=== PATIENT | female | born 1990 | race Hispanic/Latino ===

== ENCOUNTER 2016-11-01 18:21 | Inpatient (IN) | payer OTHER ==
[~2016-11-01] VITALS: Ht 167.6 cm; Wt 55.3 kg
[~2016-11-01 18:21] MED LIST: CYCLOBENZAPRINE10 M1 PO; KETOROLAC TROME10 M1 PO; PERCOCET 5-3251 EACH PO
--- NOTE | 2016-11-01 18:26 | NUR ---
TRIAGE; PT TO ED C/O RT SIDED CHEST/LUNG PAIN. STATES SHE HAS OLIVARES HX OF SPONTANEOUS PNEUMOTHORAX IN JULY 2016, AND FEELS LIKE THE SAME. STATES SHE WOKE UP THIS AM AND FELT THE PAIN. DENIES ANY INJURY. RA SAT 99% AT THIS TIME.
--- NOTE | 2016-11-01 18:34 | NUR ---
MEDICATED WITH MOTRIN PER eMAR AND O2 SAT MONITORING STABLE AT 98-99%RA. NO INCREASED WORK OF BREATHING OR SOB OBSERVED.
--- NOTE | 2016-11-01 18:34 | ED DYSPNEA/ASTHMA COMPLAINT ---
History of Present Illness General Chief Complaint: Dyspnea (COPD, CHF, Other) Stated Complaint: SOB Source: patient, old records Exam Limitations: no limitations Allergies Coded Allergies: NO KNOWN ALLERGIES (08/23/15) Reconcile Medications No Known Home Medications Triage Note: TRIAGE; PT TO ED C/O RT SIDED CHEST/LUNG PAIN. STATES SHE HAS OLIVARES HX OF SPONTANEOUS PNEUMOTHORAX IN JULY 2016, AND FEELS LIKE THE SAME. STATES SHE WOKE UP THIS AM AND FELT THE PAIN. DENIES ANY INJURY. RA SAT 99% AT THIS TIME. Triage Nurses Notes Reviewed? yes Onset: Abrupt Duration: day(s): (1), constant Timing: recent history Severity: moderate Activities at Onset: none Prior Episodes/Possible Cause: PNTHX JULY 2016 : No Patient currently breastfeeds: No HPI: 25-year-old female with history of spontaneous right-sided pneumothorax 3 months ago (complicated by hemothorax requiring IR placed chest tube 07/2016) presents the ER today for evaluation complaining of sudden onset right-sided chest wall pain associated with shortness of breath that came on upon waking this morning. She states this feels similar to when she had the pneumothorax. There's been no recent trauma or injury no heavy lifting. No cough fever or chills no hemoptysis. No dizziness lightheadedness or palpitations. She denies any abdominal pain nausea or vomiting. No leg pain or swelling.no modifying factors or associated symptoms otherwise. (MATT NAGEL) Vital Signs & Intake/Output Vital Signs & Intake/Output Vital Signs Date Time Temp Pulse Resp B/P Pulse O2 O2 Flow FiO2 Ox Delivery Rate 11/01 1903 86 22 123/88 100 Room Air 11/01 1845 99 Room Air 11/01 1824 97.1 88 18 124/84 99 Room Air Past History Travel History Traveled to [place] past 21 day No Medical History Any Pertinent Medical History? see below for history Neurological: NONE EENT: NONE Cardiovascular: NONE Respiratory: PNEUMOTHORAX Gastrointestinal: NONE Hepatic: NONE Renal: NONE Musculoskeletal: NONE Psychiatric: NONE Endocrine: NONE History of MRSA: No History of VRE: No History of CDIFF: No Surgical History Surgical History: non-contributory Psychosocial History Who do you live with Significant Other Services at Home None What is your primary language Chilean Tobacco Use: Never used Family History Hx Contributory? No (MATT NAGEL) Review of Systems Review of Systems Constitutional: Reports: see HPI. All Other Systems: Reviewed and Negative Comments Review of systems: See HPI, All other systems negative. Constitutional, no chills no fever, no malaise HEENT: no sore throat no congestion Cardiovascular: chest pain , no palpitation Skin, no rashes, no change in skin Respiratory: dyspnea no cough no sputum no hemoptysis GI: No nausea no vomiting, no diarrhea, : No dysuria No hematuria, no frequency Muscle skeletal: No joint pain, no joint swelling, no back pain, no neck pain, Neurologic: No numbness no headache Psych: No stress Heme/endocrine: No bruising no bleeding Immunology: No lymphadenopathy (MATT NAGEL) Physical Exam Physical Exam General Appearance: well developed/nourished, alert, awake Respiratory: normal breath sounds, chest non-tender, no respiratory distress Comments: Well-developed well-nourished person in no acute distress HEENT: Normal EENT exam; PERRL, EOMI, HEAD is atraumatic. moist mucous membranes. Neck: Supple, normal range of motio Back: Nontender, no CVA tenderness. Full range of motion Cardiovascular: Regular rate and rhythms no murmurs rubs or gallops, normal JVP Respiratory: Chest nontender.There were no bony deformities, no asymmetry. No respiratory distress. Patient speaking in full complete sentences. Breath sounds clear to auscultation bilaterally: NO W/R/R Abdomen: Soft, nontender nondistended, Extremity: No edema, full range of motion of extremities Neuro: Alert oriented x3, motor sensory normal, There were no obvious focal neurologic abnormalities. Skin: No appreciable rash on exposed skin, skin is warm and dry. Psych: Mood and affect is normal, memory and judgment is normal. Core Measures ACS in differential dx? Yes Severe Sepsis Present: No Septic Shock Present: No All Positive = PERC Ruled Out: Positive: age < 50 years, heart rate < 100 bpm, O2 sat > 94%, no hemoptysis, no hormone use, no prior DVT or PE, no unilateral leg swellin, no surgery/trauma w/ in 4w. (MATT NAGEL) Progress Differential Diagnosis: asthma, AMI, bronchitis, costochondritis, musculoskeletal pain, pericarditis, pulmonary embolism, pneumonia, pneumothorax, unstable angina Diagnostic Imaging: Viewed by Me: Radiology Read. Discussed w/RAD: Radiology Read. Radiology Impression: PATIENT: MESSI NEGRO PRESENT AGE: 25 PATIENT ACCOUNT NO: [id number] : 91 LOCATION: [facility] ORDERING PHYSICIAN: MATT WISEMAN SERVICE DATE: 11/01/16-1830 EXAM TYPE: RAD - XRY-CHEST XRAY, PA AND LATERAL EXAMINATION: CHEST 2 VIEWS CLINICAL INFORMATION: Chest pain. History of prior right-sided pneumothorax. COMPARISON: 08/26/2016. TECHNIQUE: PA and lateral views of the chest were obtained. FINDINGS : The cardiac silhouette is not enlarged. The mediastinal and hilar contours are unremarkable. There are no pleural effusions. There is a lwdfw-xo-sxbemsgn right pneumothorax without shift of midline structures. There are no consolidations. The osseous structures are unremarkable. IMPRESSION: Vzxzy-qy-mzjunpfo right pneumothorax without shift of midline structures. DICTATED BY: GURDEEP RABAGO MD DATE/TIME DICTATED:11/01/161850 RIVET TAPPING MACHINE OPERATOR:RUDOLPH DATE/TIME TRANSCRIBED:11/01/161850 CONFIDENTIAL, DO NOT COPY WITHOUT APPROPRIATE AUTHORIZATION. <Electronically signed in Other Vendor System> SIGNED BY: GURDEEP RABAGO MD 11/01/161854 Initial ED EKG: normal intervals, normal p-waves, normal QRS complex, normal sinus rhythm (80) Prior EKG: unchanged (07/2016) (KYLIE WISEMAN,MATT) Plan of Care: Orders Procedure Date/time Status Nothing by Mouth 11/02 B Active XRY-CHEST XRAY, ONE VIEW ONLY 11/02 06 Active CBC WITHOUT DIFFERENTIAL 11/02 06 Active BASIC ELECTROLYTES PLUS BUN&CR 11/02 06 Active TYPE & SCREEN (NOT X-MATCH) 11/02 06 Active Regular Diet 11/01 D Complete TRC EVALUATION (GEN) 11/01 1934 Active Pathway - chart 11/01 1934 Active Patient Data 11/01 1934 Active Code Status 11/01 1934 Active Saline Lock 11/02 1927 Active Misc Message 11/02 1927 Active ED Holding Orders 11/02 1927 Active Admit to inpatient 11/02 1927 Active Vital Signs 11/02 1927 Active Code Status 11/02 1927 Complete Admit to inpatient 11/01 1926 Active PARTIAL THROMBOPLASTIN TIME 11/01 1914 Complete PROTHROMBIN TIME 03/19 1915 Complete HUMAN BETA HCG SCREEN 11/01 1914 Active COMPREHENSIVE METABOLIC PANEL 11/01 1914 Active CBC WITHOUT DIFFERENTIAL 11/01 1914 Complete EKG 11/01 1836 Active VTE Mechanical Prophylaxis 11/01 UNK Active Vital Signs 11/01 UNK Active Nursing RT Care 11/01 UNK Active Intake & Output 11/01 UNK Active Activity/Ambulation 11/[address] CHEST WO IV CONTRAST 11/01 UNK Active Current Medications Sig/Dorothy Start time Last Medication Dose Stop Time Status Admin Hydromorphone HCl 1 MG Q3P PRN 11/01 1944 AC (Dilaudid) Ketorolac 30 MG Q8P PRN 11/01 1944 AC Tromethamine (Toradol) Ondansetron HCl 4 MG Q6P PRN 11/01 1944 AC (Zofran) Potassium Chloride 20 MEQ .[id number] 11/01 1929 AC (KCl 20MEQ in D5W NS 1000ML) Dextrose/Sodium 1,000 ML Chloride (D5-Normal Saline) Laboratory Tests 11/01/161934: Sodium Pending, Potassium Pending, Chloride Pending, Carbon Dioxide Pending, Anion Gap Pending, BUN Pending, Creatinine Pending, BUN/Creatinine Ratio Pending , Glucose Pending, Calcium Pending, Total Bilirubin Pending, AST Pending, ALT Pending, Alkaline Phosphatase Pending, Total Protein Pending, Albumin Pending, Globulin Pending, Albumin/Globulin Ratio Pending, Total Beta HCG NEGATIVE, PT 11.9, INR 1.13, APTT 35, CBC w Diff NO MAN DIFF REQ, RBC 4.76, MCV 87.3, MCH 28.3, RDW 13.4, MPV 9.8, Gran % 66.1, Lymphocytes % 24.9, Monocytes % 6.9, Eosinophils % 1.7, Basophils % 0.4, Absolute Granulocytes 4.8, Absolute Lymphocytes 1.8, Absolute Monocytes 0.5, Absolute Eosinophils 0.1, Absolute Basophils 0, PUBS MCHC 32.4 L Chest x-ray ordered patient making Motrin 800 mg by mouth one sounds are clear in all lung martinez patient appears in no apparent distress at this time case discussed with Dr. Araujo. On repeat evaluation patient declining anything for pain when offered I discussed with her x-ray findings labs ordered, was placed to thoracic surgery. Case was discussed with Dr. MAGANA advised to admit the patient to his service for possible pleurodesis. Surgical PA mainor kapoor in dept to eval pt, advised to place pt on 100% nrb (MATT NAGEL) Comments: 11/01/2016 7:14:18 PM patient's case discussed by me with Dr. Magana. He admitted to his service. He has requested that the pneumothorax be left alone pending surgery (this is the patient's second pneumothorax). (ZOEY NAJERA,KAYLIE Marley) Departure Departure Time of Disposition: 1919 Disposition: STILL A PATIENT Condition: Stable Clinical Impression Primary Impression: Pneumothorax Referrals: SMITHA GUDINO MD (PCP/Family) Departure Forms: Customer Survey General Discharge Information Admission Note Spoke With: YOON NAJERA,KRISTEN Howell JR Documentation of Exam: Documentation of any treatments & extenuating circumstances including Concerns Regarding Discharge (functional status, medication knowledge or non-compliance, living conditions, etc.) that warrant an admission rather than observation: Trend labs pain control nothing by mouth at midnight possible pleurodesis premature discharge would BE medically harmful (MATT NAGEL) Departure Prescriptions: Current Visit Scripts No Known Home Medications PA/MANAGER PROVIDER RELATIONS Co-Sign Statement Statement: ED Attending supervision documentation- [X] I saw and evaluated the patient. I have also reviewed all the pertinent lab results and diagnostic results. I agree with the findings and the plan of care as documented in the PA's/MANAGER PROVIDER RELATIONS's documentation. [] I have reviewed the ED Record and agree with the PA's/MANAGER PROVIDER RELATIONS's documentation. [] Additions or exceptions (if any) to the PAs/MANAGER PROVIDER RELATIONS's note and plan are summarized below: [] (ZOEY NAJERA,KAYLIE Marley) Critical Care Note Critical Care Note Critical Care Time: non-applicable (MATT NAGEL)
--- NOTE | 2016-11-01 18:40 | NUR ---
PT AMBULATED TO [facility].
--- NOTE | 2016-11-01 18:55 | RADIOLOGY REPORT ---
EXAMINATION: CHEST 2 VIEWS CLINICAL INFORMATION: Chest pain. History of prior right-sided pneumothorax. COMPARISON: 08/26/2016. TECHNIQUE: PA and lateral views of the chest were obtained. FINDINGS: The cardiac silhouette is not enlarged. The mediastinal and hilar contours are unremarkable. There are no pleural effusions. There is a xdgfi-dm-cqjqihvd right pneumothorax without shift of midline structures. There are no consolidations. The osseous structures are unremarkable. IMPRESSION: Ufwwn-gb-nsvyqedo right pneumothorax without shift of midline structures.
--- NOTE | 2016-11-01 19:28 | Admission Core Measures ---
Acute Coronary Syndrome Inclusion Criteria ACS Diagnosis No Inpatient Core Measures LDL Reminder: If No, please order W/I first 24hr of stay Congestive Heart Failure Inclusion Criteria CHF Diagnosis No Cerebrovascular accident Inclusion Criteria CVA/TIA Diagnosis No Inpatient Core Measures Bedside Swallow Eval Reminder: If BSE failed, place ST order Antithrombotic Reminder: Order Antithrombotic Medication by end of day 2 Antithrombotic Reminder: Document Reason Antithrombotic Not ordered by end of day 2 AFIB/Flutter Reminder: If Present, add to problem list AFIB/Flutter Reminder: Order Anticoag Medication for pts with AFIB/Flutter Atherosclerosis Reminder: If Present, add to problem list LDL Reminder: If No, please order W/I first 24hr of stay PT Order Reminder: If No, please order Venous thromboembolism Inpatient Core Measures VTE Risk Factors: No Risk Factors No [facility] VTE prophylaxis d/t No contraindications No VTE Pharm Prophylaxis d/t No contraindications Inclusion Criteria - Per Current guidelines, there needs to be overlap - treatment for the first 5 days of Warfarin therapy. - Parenteral Anticoagulation (IV or SC) needs to be - given along with Warfarin therapy. VTE Diagnosis No VTE Type NONE VTE Confirmed by (Test) NONE Problem List As ranked by this Provider includes Assessment & Plan 1. Pneumothorax on right HOME MEDS Home Med List No Known Home Medications
--- NOTE | 2016-11-01 19:36 | NUR ---
BLOOD DRAWN AND SENT TO LAB. SST,LAV,BLUE,DENNEY
--- NOTE | 2016-11-01 19:43 | History & Physical Pre-Op ---
LIGIA PERALES 11/01/161935: General Information and HPI MD Statement: I have seen and personally examined MESSI NEGRO and documented this H&P. The patient is a 25 year old F who presented with a patient stated chief complaint of . Chest and back pain since this morning. Source of Information: patient Exam Limitations: no limitations History of Present Illness: This is a 25-year-old female known to the thoracic surgical service. Approximately 2-1/2 months ago the patient had a spontaneous pneumothorax on the right side which was treated with chest tube decompression and eventual resolution. The patient was seen she reports developing sudden onset of chest pain which radiated to her back and only slight difficulty in breathing which started earlier this morning. The patient denied any recent coughing bouts or strenuous activities. At the current time she denied any difficulty breathing but was still having chest and back discomfort. The emergency department workup revealed a moderate sized recurrent pneumothorax on the right. The patient had no other complaints. Allergies/Medications Allergies: Coded Allergies: NO KNOWN ALLERGIES (08/23/15) Home Med list No Known Home Medications Past History Medical History Neurological: NONE EENT: NONE Cardiovascular: NONE Respiratory: PNEUMOTHORAX Gastrointestinal: NONE Hepatic: NONE Renal: NONE Musculoskeletal: NONE Psychiatric: NONE Endocrine: NONE History of MRSA: No History of VRE: No History of CDIFF: No Surgical History Pertinent Surgical History: non-contributory Past Family/Social History Psychosocial History Services at Home None Smoking Status: Never Smoked ETOH Use: denies use Functional Ability ADLs Independent: dressing, eating, toileting, bathing. Ambulation: independent IADLs Independent: shopping, housework, finances, food prep, telephone, transportation , medication admin. Review of Systems Review of Systems Cardiovascular: Denies: palpitations, syncope. Respiratory: Denies: cough, wheezing. GI: Denies: constipation, changes in stool. Exam & Diagnostic Data Last 24 Hrs of Vital Signs/I&O Vital Signs Date Time Temp Pulse Resp B/P Pulse O2 O2 Flow FiO2 Ox Delivery Rate 11/01 1903 86 22 123/88 100 Room Air 11/01 1845 99 Room Air 11/01 1824 97.1 88 18 124/84 99 Room Air Laboratory Tests 11/01 1934 Chemistry Sodium Pending Potassium Pending Chloride Pending Carbon Dioxide Pending Anion Gap Pending BUN Pending Creatinine Pending BUN/Creatinine Ratio Pending Glucose Pending Calcium Pending Total Bilirubin Pending AST Pending ALT Pending Alkaline Phosphatase Pending Total Protein Pending Albumin Pending Globulin Pending Albumin/Globulin Ratio Pending Total Beta HCG Pending Coagulation PT Pending INR Pending APTT Pending Hematology CBC w Diff Pending WBC Pending RBC Pending Hgb Pending Hct Pending MCV Pending MCH Pending RDW Pending Plt Count Pending MPV Pending PUBS MCHC Pending Chest x-ray showing a moderate size right pneumothorax. Physical Exam: Gen.: Alert and in no obvious distress Skin: Warm and dry Cardiac: S1-S2 regular Chest: Nontender with equal expansion Pulmonary: Right-sided breast sounds are diminished at the apex. There was good air exchange and there was no wheezes, rales, or rhonchi. Abdomen: Soft and nontender Extremities: Bilateral lower extremities warm without calf tenderness or significant edema. Assessment/Plan Assessment/Plan: Assessment: This is a 25-year-old female with recurrent spontaneous right pneumothorax. The patient is saturating well on room air with no signs of respiratory distress. The case was discussed with Rene Magana MD. Plan: The patient will require further operative intervention as this is a recurrence The patient be kept nothing by mouth past midnight with IV hydration PRN pain medication, antiemetics, antipyretics Total respiratory care with every 3 hour pulse oximetry The patient will be on 100% Oxygen Via a Nonrebreather GI and DVT prophylaxis Repeat chest x-ray in the morning As Ranked By This Provider Problem List: 1. Pneumothorax on right RENE MAGANA MD 11/03/16 0947: Attending MD Review Statement Attending Statement Attending MD Statement: examined this patient, discuss w/resident/PA/ARCHITECTURE PROFESSOR, agreed w/resident/PA/ARCHITECTURE PROFESSOR Attending Assessment/Plan: She had a complicated experience previously with her first pneumothorax. She had a significant hemothorax related to 8 catheter placement. Given her stability the plan will be for admission and observation overnight. We will take her to the operating room tomorrow for a thoracoscopic bleb resection and pleurodesis. The risks and benefits and rationale behind the procedure been explained to the patient and she understands and agrees.
[2016-11-01 19:59] LABS: ABSOLUTE BASOPHIL COUNT 0 /CUMM (0.0-0.2); ABSOLUTE EOSINOPHIL COUNT 0.1 /CUMM (0.0-0.7); ABSOLUTE GRANULOCYTE CT 4.8 /CUMM (1.4-6.5); ABSOLUTE LYMPH COUNT 1.8 /CUMM (1.2-3.4); ABSOLUTE MONOCYTE COUNT 0.5 /CUMM (0.10-0.60); BASOPHIL % 0.4 % (0.0-2.0); EOSINOPHIL % 1.7 % (0-5); GRANULOCYTE % 66.1 % (42.2-75.2); HEMATOCRIT 41.5 % (37-47); MEAN CORPUSCULAR HGB 28.3 PG (27.0-31.0); MEAN CORPUSCULAR HGB CONC 32.4 G/DL (33.0-37.0); MEAN CORPUSCULAR VOLUME 87.3 FL (81.0-99.0); MEAN PLATELET VOLUME 9.8 FL (7.4-10.4); PLATELET COUNT 194 /CUMM (130-400); RBC DISTRIBUTION WIDTH 13.4 % (11.5-14.5); RED BLOOD CELL CT 4.76 /CUMM (4.20-5.40); WHITE BLOOD CELL COUNT 7.3 /CUMM (4.8-10.8)
--- NOTE | 2016-11-01 20:01 | NUR ---
PT PLACED ON HIGH FLOW O2 VIA NRB PER SURGICAL PA. PT NOTED TO CONTINUE TO BE IN NO RESPIRATORY DISTRESS AND IMPROVED PAIN AFTER MOTRIN ADMINISTRATION. O2 SAT 100% ON ROOM AND AND NRB MASK. AWARE OF PLAN FOR ADMISSION AND NEED FOR IV. PROVIDED HOSPITAL SCRUB PANTS AND SOCKS TO CHANGE INTO
[2016-11-01 20:03] LABS: PT 11.9 SEC (9.4-12.5); PTT 35 SEC (25-37)
--- NOTE | 2016-11-01 20:45 | NUR ---
[facility] ASSIGNMENT #[id number]
--- NOTE | 2016-11-01 20:50 | NUR ---
PLAN FOR NPO AFTER MIDNIGHT FOR ? OR IN THE AM
--- NOTE | 2016-11-01 21:01 | CT SCAN REPORT ---
EXAMINATION: CT CHEST WITHOUT CONTRAST CLINICAL INFORMATION: Right pneumothorax. Follow-up abnormal exam. COMPARISON: Same day chest radiographs. TECHNIQUE: Contiguous axial thin section helical images of the chest were performed without contrast. The data set was reformatted in the coronal and sagittal planes and reviewed on an independent workstation. DLP: 164 mGy-cm. FINDINGS: The heart is of normal size. There is no pericardial effusion. There is neither mediastinal, hilar nor axillary lymphadenopathy. There are no chest wall masses. Review of lung windows demonstrates a moderate right pneumothorax with mass effect upon the right lung without shift of midline structures. Within the right middle lobe on image 190/432, there is a 4 mm nodule. The left lung is clear. Images of the upper abdomen demonstrate that the liver is of normal size and attenuation without focal lesions. Normal adrenal glands are identified. Bone windows: Neither sclerotic nor lytic bone lesions are identified. IMPRESSION: Moderate right pneumothorax without significant shift of midline structures. 4 mm right middle lobe nodule. Various management parameters for solitary pulmonary nodules are in the literature. According to the Fleischner Society, recommendations for pulmonary nodules are as follows: Nodule size < or = to 4 mm in LOW RISK PATIENTS: No follow up needed. Nodule size < or = to 4 mm in HIGH RISK PATIENTS: Follow up CT at 12 months; if unchanged, no further follow up. Nodule size > 4-6 mm in LOW RISK PATIENTS: Follow up CT at 12 months; if unchanged, no further follow up. Nodule size > 4-6 mm in HIGH RISK PATIENTS: Initial follow up CT at 6-12 months, then at 18-24 months if no change. Nodule size > 6-8 mm in LOW RISK PATIENTS: Initial follow up CT at 6-12 months, then at 18-24 months if no change. Nodule size > 6-8 mm in HIGH RISK PATIENTS: Initial follow up CT at 3-6 months, then 9-12 months and 24 months if no change. Nodule size > 8 mm in LOW RISK PATIENTS: Follow up CT at around 3, 9, and 24 months, dynamic contrast-enhanced CT, PET, and/or biopsy. Nodule size > 8 mm in HIGH RISK PATIENTS: Same as for low-risk patients.
--- NOTE | 2016-11-01 21:01 | NUR ---
REPORT GIVEN TO RECEIVING RN AND LEFT MESSAGE WITH DISTRIBUTION
[2016-11-01 21:47] VITALS: BP 104/78
--- NOTE | 2016-11-01 21:53 | NUR ---
PT ARRIVED AT THIS TIME- A/O X 3, ON 100% NRB MASK AT THIS TIME, 100% O2 SAT, SPOKE WITH LIGIA SURGICAL PA AT THIS TIME OK TO PLACE PT ON 10L NC WHEN EATING. OK TO EAT AND DRINK UP UNTIL MIDNIGHT THEN NPO FOR PLANS OF SURGERY. PT DENIES SOB AT THIS TIME, STATES PAIN 6-7/10 TO RIGHT CHEST/BACK AREA AND "FULLNESS" FEELING WITH DEEP BREATHING. SKIN INTACT. ALPS IN PLACE. INDEP IN ROOM. VSS. ORIENTED TO ROOM AND USE OF CALL GREER. BOX LUNCH ORDERED. EDUCATED PT ON PAIN MEDS AVAILABLE- REFUSING PAIN MEDS AT THIS TIME STATED SHE WILL CALL IF SHE NEEDS PAIN MEDS. WILL CONTINUE TO MONITOR
[2016-11-02 06:49] VITALS: BP 104/80
[2016-11-02 08:14] LABS: ABSOLUTE BASOPHIL COUNT 0 /CUMM (0.0-0.2); ABSOLUTE EOSINOPHIL COUNT 0.1 /CUMM (0.0-0.7); ABSOLUTE GRANULOCYTE CT 1.5 /CUMM (1.4-6.5); ABSOLUTE LYMPH COUNT 1.8 /CUMM (1.2-3.4); ABSOLUTE MONOCYTE COUNT 0.4 /CUMM (0.10-0.60); BASOPHIL % 0.5 % (0.0-2.0); GRANULOCYTE % 38.4 % (42.2-75.2); HEMATOCRIT 37.1 % (37-47); MEAN CORPUSCULAR HGB 28.4 PG (27.0-31.0); MEAN CORPUSCULAR HGB CONC 32.5 G/DL (33.0-37.0); MEAN CORPUSCULAR VOLUME 87.2 FL (81.0-99.0); MEAN PLATELET VOLUME 10.1 FL (7.4-10.4); PLATELET COUNT 146 /CUMM (130-400); RBC DISTRIBUTION WIDTH 13.7 % (11.5-14.5); RED BLOOD CELL CT 4.26 /CUMM (4.20-5.40); WHITE BLOOD CELL COUNT 3.8 /CUMM (4.8-10.8)
--- NOTE | 2016-11-02 10:24 | NUR ---
PATIENT TO OR AT 0925, PRE OP CHECKLIST AND SCRUB COMPLETED, PATIENT WILL BE GOING TO [facility] AFTER SURGERY. BELONGINGS SENT TO ROOM 113, CELL PHONE IN RIGHT POCKET OF JACKET. [facility] AWARE TO CALL FOR REPORT WHEN READY.
--- NOTE | 2016-11-02 11:21 | RADIOLOGY REPORT ---
EXAMINATION:\H\ \N\XR CHEST CLINICAL INFORMATION: Follow up study. History of right-sided pneumothorax. COMPARISON: 11/01/2016 TECHNIQUE: PA view of the chest was obtained. FINDINGS: The cardiomediastinal silhouette is normal. There is a small to moderate right-sided pneumothorax, this is similar to slightly decreased in size compared with the prior exam. No midline shift. No focal consolidation or pleural effusions are identified. IMPRESSION: Similar to slightly decreased small to moderate right-sided pneumothorax. No mediastinal shift.
--- NOTE | 2016-11-02 12:39 | RADIOLOGY REPORT ---
EXAMINATION: XR PORTABLE CHEST CLINICAL INFORMATION: Status-post right thoracoscopy, pleurodesis and thoracostomy tube placement. COMPARISON: Prior chest radiographs, most recently earlier in the same day. TECHNIQUE: Portable AP view of the chest was obtained. FINDINGS: The heart, great vessels, pulmonary vasculature and mediastinum are stable. There is interim placement of a right thoracostomy tube, with tip positioned at the medial right apex. There are right apical surgical chain cara. No focal infiltrate, effusion or pneumothorax is seen. There is no mediastinal shift. There is no acute osseous abnormality. IMPRESSION: Right lung postoperative changes are seen, including thoracostomy tube placement. There is no pneumothorax. The lungs appear clear.
--- NOTE | 2016-11-02 13:51 | PN- Thoracic Surgery ---
Subjective Subjective: Post op check Awake, alert in the PACU Pain is tolerable at this time, no specific complaints Denies nausea Objective Vital Signs and I&Os Vital Signs Date Time Temp Pulse Resp B/P Pulse O2 O2 Flow FiO2 Ox Delivery Rate 11/02 0844 Non 100% ReBreather 11/02 0843 99 Non 100% ReBreather 11/02 0800 100 Non 100% ReBreather 11/02 0700 100 Non 100% ReBreather 11/02 0649 97.6 67 19 104/80 100 Non 100% ReBreather 11/02 0425 100 Non 100% ReBreather 11/02 0400 100 Non 100% ReBreather 11/02 0104 100 Non 100% ReBreather 11/02 0104 100 Non 100% ReBreather 11/02 0000 100 Non 100% ReBreather 11/01 2200 100 Non 100% ReBreather 11/01 2147 98.8 78 18 104/78 100 Non 100% ReBreather 11/01 2134 Non 100% ReBreather 11/01 2057 98.0 76 20 124/82 100 Room Air 11/01 1903 86 22 123/88 100 Room Air 11/01 1845 99 Room Air 11/01 1824 97.1 88 18 124/84 99 Room Air Intake & Output 11/02 1600 11/02 0800 11/02 0000 11/01 1600 11/01 0800 11/01 0000 Intake Total 600 150 Output Total Balance 600 150 Intake, IV 600 Intake, Oral 150 Patient 122 lb Weight Physical Exam: 113/72 HR 86 sat 100% on 3LNC RR [address]: 50cc serosang drainage since surgery - no air leak DEMOLITION EXPERT dilaudid General: alert and oriented times three Chest: clear anteriorly, no rales/rhonchi/wheezes, RRR Abd: soft, good bs Ext: warm, no edema Wound: dressed, dry Assessment/Plan Assessment/Plan 25 yo female with recurrent R PTX now s/p R apical blebectomy, pleurodesis Chest tube to LCWS DEMOLITION EXPERT-dilaudid for pain management IVF - dc when tolerating PO Regular diet fu cxr in am Core Measures/Miscellaneous Venous Thromboembolism VTE Risk Factors: Surgery VTE Contraindications: No Contraindications VTE Diagnosis: No VTE Type: NONE VTE Confirmed by (Test): NONE Beta Susy Is Beta Susy a Home Med? No Antibiotics Is Patient on Antibiotics? Yes (post op 24 hours)
--- NOTE | 2016-11-02 14:21 | Cons- CRCU ---
General Information and HPI Consulting Request Date of Consult: 11/02/16 History of Present Illness: This is a 25-year-old female with history of spontaneous pneumothorax on the right side which was treated with chest tube decompression and eventual resolution 2 and half months ago. Yesterday she presented with sudden onset of chest pain which radiated to her back and difficulty in breathing. The patient denied any recent coughing bouts or strenuous activities. The emergency department workup revealed a moderate sized recurrent pneumothorax on the right. The patient had no other complaints. Since this was a recurrence a decision made to proceed with operative intervention, she underwent right apical blebectomy and pleurodesis. Admitted to ICU for close monitoring after the surgical procedure. Allergies/Medications Allergies: Coded Allergies: NO KNOWN ALLERGIES (08/23/15) Home Med List: Oxycodone HCl/Acetaminophen (Percocet 5-325 MG Tablet) 5 MG-325 MG TABLET 1-2 TAB PO Q4-6 PRN PRN pain control Current Medications: Current Medications Sig/Dorothy Start time Last Medication Dose Route Stop Time Status Admin Acetaminophen 1,000 MG Q6P PRN 11/02 1345 AC IV Cefazolin Sodium 2 GM Q8H 11/02 1830 AC N/A 1 UNIT IV 11/03 0259 Docusate Sodium 100 MG BID 11/02 2200 AC PO Heparin Sodium 5,000 UNIT Q8 11/02 1400 AC (Porcine) SC Hydromorphone HCl 50 MG Q24H PRN 11/02 1215 AC Sodium Chloride 45 ML IV Hydromorphone HCl 1 MG Q3P PRN 11/01 194 DC IV Ibuprofen 800 MG ONCE ONE 11/01 1845 DC 11/01 PO 11/01 1846 1834 Ibuprofen 0 .STK-MED ONE 11/01 183 DC PO Ketorolac 30 MG Q8P PRN 11/01 1945 DC Tromethamine IV Ondansetron HCl 4 MG Q6P PRN 11/02 1345 AC IV Ondansetron HCl 4 MG Q6P PRN 11/01 194 DC IV Patient Medication 1 ED ONE ONE 11/02 1345 DC Teaching ED 11/02 1346 Potassium Chloride 20 MEQ .[id number] 11/02 2210 AC Dextrose/Sodium 1,000 ML IV Chloride Potassium Chloride 20 MEQ .[id number] 11/01 1930 AC 11/01 Dextrose/Sodium 1,000 ML IV 11/02 Chloride Review of Systems Review of Systems Constitutional: Denies: chills, fever. EENTM: Reports: no symptoms. Cardiovascular: Reports: chest pain. Denies: palpitations. Respiratory: Reports: short of breath. Denies: cough, sputum production. GI: Denies: abdominal pain, constipation, diarrhea, nausea, vomiting. Genitourinary: Reports: no symptoms. Musculoskeletal: Reports: no symptoms. Skin: Reports: no symptoms. Past History Travel History Traveled to [place] past 21 day No Medical History Blood Transfusion Hx: No Neurological: NONE EENT: NONE Cardiovascular: NONE Respiratory: PNEUMOTHORAX Gastrointestinal: NONE Hepatic: NONE Renal: NONE Musculoskeletal: NONE Psychiatric: NONE Endocrine: NONE Surgical History Surgical History: non-contributory Family History Relations & Conditions If Any: Relation not specified for: *No pertinent family history Psychosocial History Where Do You Live? Home Services at Home: None Primary Language: Urugu[place] Smoking Status: Never Smoked ETOH Use: denies use Illicit Drug Use: denies illicit drug use Functional Ability ADLs Independent: dressing, eating, toileting, bathing. Ambulation: independent IADLs Independent: shopping, housework, finances, food prep, telephone, transportation , medication admin. Exam & Diagnostic Data Last 24 Hrs of Vital Signs/I&O Vital Signs Date Time Temp Pulse Resp B/P Pulse O2 O2 Flow FiO2 Ox Delivery Rate 11/02 0844 Non 100% ReBreather 11/02 0843 99 Non 100% ReBreather 11/02 0800 100 Non 100% ReBreather 11/02 0700 100 Non 100% ReBreather 11/02 0649 97.6 67 19 104/80 100 Non 100% ReBreather 11/02 0425 100 Non 100% ReBreather 11/02 0400 100 Non 100% ReBreather 11/02 0104 100 Non 100% ReBreather 11/02 0104 100 Non 100% ReBreather 11/02 0000 100 Non 100% ReBreather 11/010 100 Non 100% ReBreather 11/01 2146 98.8 78 18 104/78 100 Non 100% ReBreather 11/01 2133 Non 100% ReBreather 11/01 2056 98.0 76 20 124/82 100 Room Air 11/01 1903 86 22 123/88 100 Room Air 11/01 1845 99 Room Air 11/01 1824 97.1 88 18 124/84 99 Room Air Intake & Output 11/02 1600 11/02 0800 11/02 0000 Intake Total 600 150 Output Total Balance 600 150 Intake, IV 600 Intake, Oral 150 Patient 55.338 kg Weight Physical Exam General Appearance: well developed/nourished, mild distress Respiratory: decreased breath sounds right sided lower and middle lung zones Cardiovascular: regular rate/rhythm Gastrointestinal: normal bowel sounds, soft, non-tender Extremities: normal inspection, no edema Last 48 Hrs of Labs/[place]: Laboratory Tests 11/02/1615: Anion Gap 4 L, Estimated GFR > 60, BUN/Creatinine Ratio 15.0, CBC w Diff NO MAN DIFF REQ, RBC 4.26, MCV 87.2, MCH 28.4, RDW 13.7, MPV 10.1, Gran % 38.4 L, Lymphocytes % 48.3, Monocytes % 9.8 H, Eosinophils % 3.0, Basophils % 0.5, Absolute Granulocytes 1.5, Absolute Lymphocytes 1.8, Absolute Monocytes 0.4, Absolute Eosinophils 0.1, Absolute Basophils 0, PUBS MCHC 32.5 L 11/01/161934: Anion Gap 6, Estimated GFR > 60, BUN/Creatinine Ratio 12.9, Glucose 77, Calcium 9.4, Total Bilirubin 0.6, AST 22, ALT 36, Alkaline Phosphatase 49, Total Protein 7.1, Albumin 4.0, Globulin 3.1, Albumin/Globulin Ratio 1.3, Total Beta HCG NEGATIVE, PT 11.9, INR 1.13, APTT 35, CBC w Diff NO MAN DIFF REQ, RBC 4.76, MCV 87.3, MCH 28.3, RDW 13.4, MPV 9.8, Gran % 66.1, Lymphocytes % 24.9, Monocytes % 6.9, Eosinophils % 1.7, Basophils % 0.4, Absolute Granulocytes 4.8, Absolute Lymphocytes 1.8, Absolute Monocytes 0.5, Absolute Eosinophils 0.1, Absolute Basophils 0, PUBS MCHC 32.4 L Assessment/Plan Impression/Plan: This is a 25-year-old female with history of spontaneous pneumothorax on the right side which was treated with chest tube decompression and eventual resolution 2 and half months ago. Yesterday she presented with sudden onset of chest pain which radiated to her back and difficulty in breathing. The patient denied any recent coughing bouts or strenuous activities. The emergency department workup revealed a moderate sized recurrent pneumothorax on the right. The patient had no other complaints. Since this was a recurrence a decision made to proceed with operative intervention, she underwent right apical blebectomy and pleurodesis. Admitted to ICU for close monitoring after the surgical procedure. Patient will be admitted to ICU for close monitoring: - Oxygen supplementation as needed to keep saturation above 90%. - Daily chest x-rays to assess for thoracostomy tube placement, any pneumothorax , hemothorax. - We'll monitor daily labs to monitor H&H, white count, monitor fever - Will advance diet as tolerated. - Pain control with Dilaudid - We'll advance diet as tolerated - DVT prophylaxis - Patient is full code Consult Acknowledgment - Thank you for your consult request.
[2016-11-02 14:30] VITALS: BP 108/84
--- NOTE | 2016-11-02 15:00 | NUR ---
Patient arrived from PACU at approx 1415 accompanied by RN. Pt is alert and oriented x's 3, able to follow commands and responds appropriately. NSR-ST on tele monitor, HR= 80-90's. SBP: 110's and pt denies chest pain. Currently on 3L nc, lungs diminished to the right and clear on the left. O2 sats 98-100%. A right sided chest tube is in place and to low wall suction. Bloody drainage is noted and chest tube was marked upon arrival to floor. Dressing to site is clean, dry and intact. No leak is noted. Abdomen is soft and non tender with + bowel sounds. A lunch tray was ordered for her- No areas of pressure injury are currently noted. She was ambulated to the [facility] with minimal assistance. Pt c/o pain 4/10 to surgical site and she was re-educated on the use of her [employer] pump. D5NS with 20 meq kcl infusing at 75mls/hr. IV abx per order. Family at the bedside and updated on POC. Vitals stable. Will continue to closely monitor patient.
[2016-11-02 16:30] VITALS: BP 112/86
[2016-11-02 18:30] VITALS: BP 119/75
[2016-11-02 20:13] VITALS: BP 117/71
--- NOTE | 2016-11-02 21:22 | NUR ---
PT AVSS.A/OX3.FOLLOW COMMANDS.C'O GEN DISCOMFORT AND DILAUDID THERMAL CUTTER HAND CONT WITH GOOD EFFECT.NO C'O CP OR RESP DISTRESS. RIGHT CT PATENT WITH NO AIRLEAK AND SM SANGUINOUS OUTPUT NOTED, REMAIN ON SXN.HOB ELEVATED. ON 2L O2 WITH SATS >100%.NO C'O N/V AT THIS TIME.PLAN OF CARE REVIEWED.
[2016-11-03] VITALS (11 sets, daily range): BP systolic 102–122; BP diastolic 60–76
--- NOTE | 2016-11-03 05:55 | PN- Thoracic Surgery ---
Subjective Subjective: pod#1 c/o rigth sided chest pain at chest tube site with inspiration deneis substernal chest pain or left sided pain with inspirations no n+v with diet Objective Vital Signs and I&Os Vital Signs Date Time Temp Pulse Resp B/P Pulse O2 O2 Flow FiO2 Ox Delivery Rate 11/03 0400 98.0 94 22 114/60 11/03 0400 100 Nasal 2.0L Cannula 11/03 0348 100 Nasal 2.0L Cannula 11/03 0200 98.2 94 22 122/76 11/03 0000 98.2 96 12 108/60 11/03 0000 100 Nasal 2.0L Cannula 11/03 0000 98.2 96 12 108/60 100 Nasal 2.0L Cannula 11/02 2017 94 Nasal 3.0L Cannula 11/02 2012 98.0 98 20 117/71 11/02 1830 90 18 119/75 11/02 1821 99 Nasal 2.0L Cannula 11/02 1630 97.9 108 20 112/86 11/02 1600 99 Nasal 2.0L Cannula 11/02 1448 Nasal 2.0L Cannula 11/02 1430 97.8 106 16 108/84 11/02 1430 100 Nasal 2.0L Cannula 11/02 1430 97.8 106 16 108/84 99 Nasal 2.0L Cannula 11/02 0844 Non 100% ReBreather 11/02 0843 99 Non 100% ReBreather 11/02 0800 100 Non 100% ReBreather 11/02 0700 100 Non 100% ReBreather 11/02 0649 97.6 67 19 104/80 100 Non 100% ReBreather Intake & Output 11/03 0800 11/03 0000 11/02 1600 11/02 0800 11/02 0000 11/01 1600 Intake Total 795 195 600 150 Output Total 835 420 Balance -40 -225 600 150 Intake, IV 675 75 600 Intake, Oral 120 120 150 Output, Chest 35 20 Tube Drainage Output, Urine 800 400 Patient 122 lb Weight Physical Exam: cv: rrr lungs: good air movement with ins/exp no rhales/rhonchi abd: soft, +bs ext: warm distal cms intact chest drsg dry intact chest tube: +air leak Assessment/Plan Assessment/Plan thoracic stable plan f/u am cxr chest tube to lws plan per dr jackson Core Measures/Miscellaneous Venous Thromboembolism VTE Risk Factors: Surgery VTE Contraindications: No Contraindications VTE Diagnosis: No VTE Type: NONE VTE Confirmed by (Test): NONE Beta Susy Is Beta Susy a Home Med? No Antibiotics Is Patient on Antibiotics? Yes (post op 24 hours)
[2016-11-03 06:35] LABS: ABSOLUTE BASOPHIL COUNT 0 /CUMM (0.0-0.2); ABSOLUTE EOSINOPHIL COUNT 0 /CUMM (0.0-0.7); ABSOLUTE GRANULOCYTE CT 6.6 /CUMM (1.4-6.5); ABSOLUTE LYMPH COUNT 1.1 /CUMM (1.2-3.4); ABSOLUTE MONOCYTE COUNT 0.6 /CUMM (0.10-0.60); BASOPHIL % 0.1 % (0.0-2.0); EOSINOPHIL % 0.3 % (0-5); HEMATOCRIT 36.1 % (37-47); MEAN CORPUSCULAR HGB 28.4 PG (27.0-31.0); MEAN CORPUSCULAR HGB CONC 32.7 G/DL (33.0-37.0); MEAN PLATELET VOLUME 9.7 FL (7.4-10.4); PLATELET COUNT 147 /CUMM (130-400); RBC DISTRIBUTION WIDTH 13.5 % (11.5-14.5); RED BLOOD CELL CT 4.15 /CUMM (4.20-5.40)
[2016-11-03 06:39] LABS: GRANULOCYTE % 79.5 % (42.2-75.2); WHITE BLOOD CELL COUNT 8.2 /CUMM (4.8-10.8)
--- NOTE | 2016-11-03 07:26 | PN- Resident CRCU ---
Subjective HPI/CRCU Issues: Patient seen and examined this morning. She was lying comfortably in bed in no acute distress. She states that she is feeling better as compared to yesterday, but her breathing so is painful, rating the pain 6 on 10 upon deep inspiration. She did have one episode of vomiting yesterday after she ate but ever since no repeat episodes, no nausea, no abdominal pain, has been afebrile, the right is within normal limits. Chest tube to LCWS. Total drainage in the last 24 hours 75ml. 24 Hour Events: Acute overnight events acute overnight events Objective Vital Signs & I&O Last 8 Hrs of Vitals and I&O: Laboratory Tests 11/03/16 0535: Anion Gap 13, Estimated GFR > 60, BUN/Creatinine Ratio 10.0, CBC w Diff NO MAN DIFF REQ, RBC 4.15 L, MCV 87.0, MCH 28.4, RDW 13.5, MPV 9.7, Gran % 79.5 H, Lymphocytes % 12.9 L, Monocytes % 7.2, Eosinophils % 0.3, Basophils % 0.1, Absolute Granulocytes 6.6 H, Absolute Lymphocytes 1.1 L, Absolute Monocytes 0.6, Absolute Eosinophils 0, Absolute Basophils 0, PUBS MCHC 32.7 L Microbiology 11/02 1430 UPPER RESP: Surveillance Culture - RECD 11/02 1351 GI: Surveillance Culture - COLB Vital Signs Date Time Temp Pulse Resp B/P Pulse O2 O2 Flow FiO2 Ox Delivery Rate 11/03 0600 98.0 88 20 112/73 11/03 0400 98.0 94 22 114/60 11/03 0400 100 Nasal 2.0L Cannula 11/03 0348 100 Nasal 2.0L Cannula 11/03 0200 98.2 94 22 122/76 11/03 0000 98.2 96 12 108/60 11/03 0000 100 Nasal 2.0L Cannula 11/03 0000 98.2 96 12 108/60 100 Nasal 2.0L Cannula 11/02 2018 94 Nasal 3.0L Cannula 11/02 2012 98.0 98 20 117/71 11/02 1830 90 18 119/75 11/02 1821 99 Nasal 2.0L Cannula 11/02 1630 97.9 108 20 112/86 11/02 1600 99 Nasal 2.0L Cannula 11/02 1448 Nasal 2.0L Cannula 11/02 1430 97.8 106 16 108/84 11/02 1430 100 Nasal 2.0L Cannula 11/02 1430 97.8 106 16 108/84 99 Nasal 2.0L Cannula 11/02 0844 Non 100% ReBreather 11/02 0843 99 Non 100% ReBreather Intake & Output 11/03 1600 11/03 0800 11/03 0000 Intake Total 734 795 Output Total 820 835 Balance -86 -40 Intake, IV 634 675 Intake, Oral 100 120 Output, Chest 20 35 Tube Drainage Output, Urine 800 800 Exam General Appearance: well developed/nourished Respiratory: decreased right sided breath sounds Cardiovascular: regular rate/rhythm Gastrointestinal: normal bowel sounds, soft, non-tender Extremities: normal inspection, no edema Current Medications: Current Medications Sig/Dorothy Start time Last Medication Dose Route Stop Time Status Admin Acetaminophen 1,000 MG Q6P PRN 11/02 1345 AC 11/03 IV 0735 Albuterol Sulfate 3 ML Q4 11/02 1800 AC 11/03 INH 0328 Cefazolin Sodium 2 GM Q8H 11/02 1830 DC 11/03 N/A 1 UNIT IV 11/03 0259 0312 Dexamethasone 4 MG .STK-MED ONE 11/02 0902 DC IM 11/02 0903 Dextrose/Sodium 1,000 ML Q13H 11/02 1745 AC 11/03 Chloride IV 0529 Docusate Sodium 100 MG BID 11/02 2200 AC 11/02 PO 2133 Fentanyl Citrate 250 MCG .STK-MED ONE 11/02 0901 DC IM 11/02 0902 Heparin Sodium 5,000 UNIT Q8 11/02 1400 AC 11/03 (Porcine) SC 0529 Hydromorphone HCl 50 MG Q24H PRN 11/02 1215 AC Sodium Chloride 45 ML IV Hydromorphone HCl 2 MG .STK-MED ONE 11/02 1151 DC IM 11/02 1152 Hydromorphone HCl 2 MG .STK-MED ONE 11/02 0901 DC IM 11/02 0902 Hydromorphone HCl 1 MG Q3P PRN 11/01 194 DC IV Ketorolac 30 MG ONCE ONE 11/02 1545 CAN Tromethamine IV 11/02 1546 Ketorolac 30 MG Q8P PRN 11/01 194 DC Tromethamine IV Metoclopramide HCl 10 MG ONCE ONE 11/03 1999 DC IV 11/02 2000 Midazolam HCl 2 MG .STK-MED ONE 11/02 09 DC IM 11/02 0902 Ondansetron HCl 4 MG Q6P PRN 11/02 1345 AC 11/02 IV 1813 Ondansetron HCl 4 MG Q6P PRN 11/01 1945 DC IV Patient Medication 1 ED ONE ONE 11/02 1345 DC Teaching ED 11/02 1346 Potassium Chloride 20 MEQ .[id number] 11/02 2210 CAN Dextrose/Sodium 1,000 ML IV Chloride Potassium Chloride 20 MEQ .[id number] 11/01 1930 DC 11/02 Dextrose/Sodium 1,000 ML IV 11/02 2209 1723 Chloride Antibiotics Antibiotic: cefazolin Day #: 2 IV/PO? IV CXR Findings: Right lung postoperative changes are seen, including thoracostomy tube placement. There is no pneumothorax. The lungs appear clear. Impression/Plan Impression/Problem List Impression: This is a 25-year-old female with history of spontaneous pneumothorax on the right side which was treated with chest tube decompression and eventual resolution 2 and half months ago. Yesterday she presented with sudden onset of chest pain which radiated to her back and difficulty in breathing. The patient denied any recent coughing bouts or strenuous activities. The emergency department workup revealed a moderate sized recurrent pneumothorax on the right. The patient had no other complaints. Since this was a recurrence a decision made to proceed with operative intervention, she underwent right apical blebectomy and pleurodesis. Admitted to ICU for close monitoring after the surgical procedure. Patient will be admitted to ICU for close monitoring: - Oxygen supplementation as needed to keep saturation above 90%. - Daily chest x-rays to assess for thoracostomy tube placement, any pneumothorax , hemothorax. Continue TRC and incentive spirometry. - We'll monitor daily labs to monitor H&H, white count, monitor fever - Pain control with Dilaudid, 4 she states that the pain has been adequately controlled. -Patient tolerating regular diet well. - DVT prophylaxis - Patient is full code Problem List: 1. Pneumothorax 2. Status post chest tube placement Pain Ratin Pain Location: Chest left-sided Tomorrow's Labs & Rationales: CBC for H and H monitoring status post surgery BEP for lytes monitoring Plan DVT/Prophylaxis: pharmacological
--- NOTE | 2016-11-03 09:16 | RADIOLOGY REPORT ---
EXAMINATION: XR PORTABLE CHEST CLINICAL INFORMATION: 25-year-old female with history of spontaneous right-sided hydropneumothorax. Status post right apical blebectomy. For follow-up. COMPARISON: Chest radiograph done on 07/22/2016, CT of the chest done on 11/01/2016 and most recent prior chest radiograph done on 11/02/2016. TECHNIQUE: Portable AP view of the chest was obtained. FINDINGS: Interval placement of a right-sided chest tube noted, the tip of the chest tube is seen projecting at the level of the first posterior intercostal space. There is low lung volume present (right greater than left). Postsurgical changes are noted in the form of radiopaque sutures overlying the right lung apex consistent with recent surgery. No definite evidence of any pneumothorax noted. Some air is noted within the overlying soft tissues within the muscle consistent with recent surgery. The cardiomediastinal silhouette is within normal limits. The visualized upper abdomen is unremarkable. IMPRESSION: 1. Postsurgical changes are present at right lung apex without any definite pneumothorax. 2. The tip of the chest tube is seen projecting at the right posterior first intercostal space. 3. Bilateral low lung volume.
--- NOTE | 2016-11-03 09:52 | Operative Report ---
Operative/Inv Procedure Report Surgery Date: 11/02/16 Name of Procedure: Right thoracoscopy. Apical bleb resection. 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 The patient was placed in the left lateral decubitus position and her right chest was prepped with chlorhexidine scrub and draped in a sterile fashion. An access thoracostomy site was made in the midaxillary line and the thoracoscope was introduced. There was a single apical adhesion which was taken down with electrocautery. Otherwise there was complete freedom of the upper and middle lobes with only adhesions seen at the right base to the diaphragm. Mobilization of the lung allowed identification of a single apical bleb which was photographed and left in the chart. His portion of the lung was then resected with the Endo AVA stapler. A mechanical pleurodesis was done from the apex to the diaphragm with a variety of tools including a scratch pad to allow for an abrasion of the pleural surface. The chest was irrigated with saline and found to be hemostatic. A single straight 28 [place] chest tube was placed through the anterior working site and positioned at the apex. The lung was then reinsufflated under direct vision. Of note because of the patient's thin body habitus there was fairly direct communication from the skin level to the pleural surface so all the wounds were carefully closed in a pneumostatic way with deep Vicryl suture and running Vicryl subcuticular suture. The chest tube site was cinched around the tube to prevent further air leak. The patient tolerated procedure well and was brought to the recovery room awake and extubated in stable condition.
[2016-11-04] VITALS: BP 113/81; BP 114/72
[2016-11-04 03:02] LABS: ABSOLUTE BASOPHIL COUNT 0 /CUMM (0.0-0.2); ABSOLUTE EOSINOPHIL COUNT 0.1 /CUMM (0.0-0.7); ABSOLUTE GRANULOCYTE CT 2.5 /CUMM (1.4-6.5); ABSOLUTE LYMPH COUNT 1.8 /CUMM (1.2-3.4); ABSOLUTE MONOCYTE COUNT 0.4 /CUMM (0.10-0.60); BASOPHIL % 0.5 % (0.0-2.0); EOSINOPHIL % 1.6 % (0-5); GRANULOCYTE % 52.4 % (42.2-75.2); HEMATOCRIT 36.3 % (37-47); MEAN CORPUSCULAR HGB 28.6 PG (27.0-31.0); MEAN CORPUSCULAR VOLUME 86.7 FL (81.0-99.0); PLATELET COUNT 145 /CUMM (130-400); RBC DISTRIBUTION WIDTH 13.6 % (11.5-14.5); RED BLOOD CELL CT 4.18 /CUMM (4.20-5.40); WHITE BLOOD CELL COUNT 4.8 /CUMM (4.8-10.8)
[2016-11-04 04:00] VITALS: BP 109/66
--- NOTE | 2016-11-04 05:31 | PN- Thoracic Surgery ---
Subjective Subjective: NAEO. Patient without new c/o. Pain controlled with pain regimen. She denies shortness of breath. Tolerating PO. Objective Vital Signs and I&Os Vital Signs Date Time Temp Pulse Resp B/P Pulse O2 O2 Flow FiO2 Ox Delivery Rate 11/04 0400 99.0 92 12 109/66 11/04 0400 96 Room Air Room Air 11/04 0000 98.9 104 24 113/81 11/04 0000 96 Room Air Room Air 11/04 0000 98.9 104 24 114/72 96 Room Air Room Air 11/03 2000 99.5 102 16 120/70 11/03 2000 97 Room Air Room Air 11/03 1830 98.7 110 16 113/62 11/03 1647 98 Room Air Room Air 11/03 1600 98.7 104 20 102/64 11/03 1600 98 Room Air 11/03 1600 98.7 104 20 102/64 98 Room Air 11/03 1400 104 18 112/60 11/03 1200 98.4 110 20 106/70 11/03 1200 100 Nasal 2.0L Cannula 11/03 1000 106 22 114/69 11/03 0903 100 Nasal 2.0L Cannula 11/03 0800 98.1 96 22 116/74 11/03 0800 98.1 96 22 102/70 96 Nasal 2.0L Cannula 11/03 0800 96 Nasal 2.0L Cannula 11/03 0600 98.0 88 20 112/73 Intake & Output 11/04 0800 11/04 0000 11/03 1600 11/03 0800 11/03 0000 11/02 1600 Intake Total 920 1170 734 795 195 Output Total 575 375 820 835 420 Balance 345 795 -86 -40 -225 Intake, IV 80 210 634 675 75 Intake, Oral 840 960 100 120 120 Number 0 Bowel Movements Output, Chest 25 25 20 35 20 Tube Drainage Output, Urine 550 350 800 800 400 Physical Exam: General: NAD, comfortable, A&Ox3 Chest: Slightly diminished BS at right apex, otherwise CTAB. Heart S1S2 normal. Right chest tube in place to low wall suction. No evidence of air leak. Abdomen: soft, nontender, nondistended. Ext: No calve swelling/TTP, neurovascularly intact bilateral lower extremities Current Medications: Current Medications Sig/Dorothy Start time Last Medication Dose Route Stop Time Status Admin Acetaminophen 1,000 MG Q6P PRN 11/02 1345 AC 11/04 IV 0030 Albuterol Sulfate 3 ML Q4 11/02 1800 AC 11/04 INH 0205 Dextrose/Sodium 1,000 ML Q13H 11/02 1745 DC 11/03 Chloride IV 0529 Docusate Sodium 100 MG BID 11/02 2200 AC 11/03 PO 2309 Heparin Sodium 5,000 UNIT Q8 11/02 1400 AC 11/03 (Porcine) SC 2309 Hydromorphone HCl 50 MG Q24H PRN 11/02 1215 AC 11/02 Sodium Chloride 45 ML IV 1600 Ketorolac 30 MG Q8P PRN 11/03 0915 AC 11/04 Tromethamine IV 0222 Ondansetron HCl 4 MG Q6P PRN 11/02 1345 AC 11/04 IV 0222 Results Last 48 Hours of Labs: Laboratory Tests 11/04 11/03 0230 0535 Chemistry Sodium (137 - 145 mmol/L) 138 138 Potassium (3.5 - 5.1 mmol/L) 3.5 3.5 Chloride (98 - 107 mmol/L) 102 102 Carbon Dioxide (22 - 30 mmol/L) 28 24 Anion Gap (5 - 16) 8 13 BUN (7 - 17 mg/dL) 9 5 L Creatinine (0.5 - 1.0 mg/dL) 0.5 0.5 Estimated GFR (>60 ml/min) > 60 > 60 BUN/Creatinine Ratio (7 - 25 %) 10.0 Glucose (65 - 99 mg/dL) 104 H Calcium (8.4 - 10.2 mg/dL) 8.9 Phosphorus (2.5 - 4.5 mg/dL) 2.8 Magnesium (1.6 - 2.3 mg/dL) 1.6 Total Bilirubin (0.2 - 1.3 mg/dL) 0.5 AST (14 - 36 U/L) 25 ALT (9 - 52 U/L) 34 Albumin (3.5 - 5.0 g/dL) 3.4 L Hematology CBC w Diff NO MAN DIFF REQ NO MAN DIFF REQ WBC (4.8 - 10.8 /CUMM) 4.8 8.2 RBC (4.20 - 5.40 /CUMM) 4.18 L 4.15 L Hgb (12.0 - 16.0 G/DL) 12.0 11.8 L Hct (37 - 47 %) 36.3 L 36.1 L MCV (81.0 - 99.0 FL) 86.7 87.0 MCH (27.0 - 31.0 PG) 28.6 28.4 RDW (11.5 - 14.5 %) 13.6 13.5 Plt Count (130 - 400 /CUMM) 145 147 MPV (7.4 - 10.4 FL) 10.0 9.7 Gran % (42.2 - 75.2 %) 52.4 79.5 H Lymphocytes % (20.5 - 51.1 %) 37.1 12.9 L Monocytes % (1.7 - 9.3 %) 8.4 7.2 Eosinophils % (0 - 5 %) 1.6 0.3 Basophils % (0.0 - 2.0 %) 0.5 0.1 Absolute Granulocytes (1.4 - 6.5 /CUMM) 2.5 6.6 H Absolute Lymphocytes (1.2 - 3.4 /CUMM) 1.8 1.1 L Absolute Monocytes (0.10 - 0.60 /CUMM) 0.4 0.6 Absolute Eosinophils (0.0 - 0.7 /CUMM) 0.1 0 Absolute Basophils (0.0 - 0.2 /CUMM) 0 0 PUBS MCHC (33.0 - 37.0 G/DL) 33.0 32.7 L / 0715 Chemistry Sodium (137 - 145 mmol/L) 140 Potassium (3.5 - 5.1 mmol/L) 5.0 Chloride (98 - 107 mmol/L) 109 H Carbon Dioxide (22 - 30 mmol/L) 27 Anion Gap (5 - 16) 4 L BUN (7 - 17 mg/dL) 9 Creatinine (0.5 - 1.0 mg/dL) 0.6 Estimated GFR (>60 ml/min) > 60 BUN/Creatinine Ratio (7 - 25 %) 15.0 Hematology CBC w Diff NO MAN DIFF REQ WBC (4.8 - 10.8 /CUMM) 3.8 L RBC (4.20 - 5.40 /CUMM) 4.26 Hgb (12.0 - 16.0 G/DL) 12.1 Hct (37 - 47 %) 37.1 MCV (81.0 - 99.0 FL) 87.2 MCH (27.0 - 31.0 PG) 28.4 RDW (11.5 - 14.5 %) 13.7 Plt Count (130 - 400 /CUMM) 146 MPV (7.4 - 10.4 FL) 10.1 Gran % (42.2 - 75.2 %) 38.4 L Lymphocytes % (20.5 - 51.1 %) 48.3 Monocytes % (1.7 - 9.3 %) 9.8 H Eosinophils % (0 - 5 %) 3.0 Basophils % (0.0 - 2.0 %) 0.5 Absolute Granulocytes (1.4 - 6.5 /CUMM) 1.5 Absolute Lymphocytes (1.2 - 3.4 /CUMM) 1.8 Absolute Monocytes (0.10 - 0.60 /CUMM) 0.4 Absolute Eosinophils (0.0 - 0.7 /CUMM) 0.1 Absolute Basophils (0.0 - 0.2 /CUMM) 0 PUBS MCHC (33.0 - 37.0 G/DL) 32.5 L Assessment/Plan Assessment/Plan 25yo F POD#2 s/p right VATS with bleb resection. AVSS, patient doing well. No obvious air leak. - Pain control - f/u a.m. CXR - Likey place Chest tube to water seal if xray stable - OOB to chair - continue regular diet - I/O's - Will d/w attending Core Measures/Miscellaneous Venous Thromboembolism VTE Risk Factors: Surgery VTE Contraindications: No Contraindications VTE Diagnosis: No VTE Type: NONE VTE Confirmed by (Test): NONE Beta Susy Is Beta Susy a Home Med? No Antibiotics Is Patient on Antibiotics? No (post op 24 hours)
--- NOTE | 2016-11-04 06:13 | RADIOLOGY REPORT ---
EXAMINATION: XR PORTABLE CHEST CLINICAL INFORMATION: Right-sided pneumothorax follow-up COMPARISON: Chest x-ray 11/03/2016 TECHNIQUE: Portable AP view of the chest was obtained. 5:35 AM FINDINGS: No change position of the right chest tube at the right lung apex. Surgical suture line at the right lung apex. No pneumothorax. Small volume of subcutaneous air in the base of the right neck and right axilla. No acute infiltrate. No pulmonary vascular congestion. No pleural effusion. Heart size is normal. Cardiac and mediastinal contours are normal. IMPRESSION: No pneumothorax. Right chest tube remains in place.
[2016-11-04 08:00] VITALS: BP 120/70
--- NOTE | 2016-11-04 12:33 | Patient Discharge Instructions ---
Discharge Instructions General Discharge Information You were seen/treated for: Recurrent spontaneous pneumothorax with a single apical bleb disease You had these procedures: Surgery Date: 11/02/16 Name of Procedure: Right thoracoscopy. Apical bleb resection. Mechanical pleurodesis Watch for these problems: fever>101.3, increased pain, shortness of breath, chest pain, dizziness Other wound care: dry guaze dressing changes as needed over chest tube site Special Instructions: leave white steri strips in place Diet Continue normal diet: Yes Recommended Diet: Regular Activity Full Activity/No Limits: No Activity Self Limited: Yes Pounds, do NOT lift more than: 10 Other activity limits: no heavy lifting. no strenuous activity. Acute Coronary Syndrome Inclusion Criteria At DC or during hospital stay patient has or had the following: ACS DIAGNOSIS No Discharge Core Measures Meds if any: Prescribed or Continued at Discharge Meds if any: NOT Prescribed or Continued at Discharge Congestive Heart Failure Inclusion Criteria At DC or during hospital stay patient has or had the following: CHF DIAGNOSIS No Discharge Core Measures Meds if any: Prescribed or Continued at Discharge Meds if any: NOT Prescribed or Continued at Discharge Cerebrovascular accident Inclusion Criteria At DC or during hospital stay patient has or had the following: CVA/TIA Diagnosis No Discharge Core Measures Meds if any: Prescribed or Continued at Discharge Meds if any: NOT Prescribed or Continued at Discharge Venous thromboembolism Inclusion Criteria VTE Diagnosis No VTE Type NONE VTE Confirmed by (Test) NONE Discharge Core Measures - Per Current guidelines, there needs to be overlap - treatment for the first 5 days of Warfarin therapy. - If discharged on Warfarin prior to 5 days of - overlap therapy, the patient will need to be - assessed for post discharge needs including - *Post discharge parental anticoagulation - *Warfarin and/or parental anticoagulation education - *Follow up date to check INR post discharge At least 5 days overlap therapy as Inpatient No Meds if any: Prescribed or Continued at Discharge Note: Overlap Therapy is Warfarin and Anticoagulant Meds if any: NOT Prescribed or Continued at Discharge
[2016-11-04] MEDS ORDERED: PERCOCET 5-3251 EACH PO ×2 (12:37→13:33)
--- NOTE | 2016-11-04 12:37 | RADIOLOGY REPORT ---
EXAMINATION: XR PORTABLE CHEST CLINICAL INFORMATION: Chest tube on waterseal COMPARISON: Exam performed at 0535 hours same day TECHNIQUE: Portable AP view of the chest was obtained. FINDINGS: Medially situated right apical chest tube is unchanged. There are postoperative clips at the medial apex. There is a tiny right apical pneumothorax which is increased slightly from previous. IMPRESSION: Slight increased size of tiny right apical pneumothorax with chest tube in place.
[2016-11-04 16:00] VITALS: BP 110/78
--- NOTE | 2016-11-04 20:16 | NUR ---
PT A/OX3, FOLLOWS COMMANDS. DENIES ANY PAIN AT PRESENT-SEE EMAR FOR PAIN MED ADMINISTRATION. BREATH SOUNDS CLEAR THOUGHOUT BILATEARLLY. NO COUGH, SOB OR RESP DISTRESS NOTED AT PRESENT. CHEST TUBE TO RT SIDE-TO H2O SEAL, NO AIR LEAK OR CRETIPUS NOTED, DRAINING SEROSAGINIOUS DRAINAGE. SEE FLOW SHEET FOR VS, 02 SATS, I/O'S. MONITOR SHOWS NSR-ST, NO ECTOPY NOTED AT PRESENT. BP STABLE AT PRESENT. ABD SOFT, NONTENDER, NONDISTENDED, POSITIVE BOWEL SOUNDS. OOB TO COMMODE-INDEPENDENT, GAIT STEADY-VOIDING CLEAR YELLOW URINE. SKIN INTACT. RT UPPER BACK DRESSING WITH SM AMT OF OLD BLOODY DRAINAGE, DRESSING OTHERWISE C/D/I
[2016-11-05] VITALS: BP 120/72
--- NOTE | 2016-11-05 06:59 | RADIOLOGY REPORT ---
EXAMINATION: XR PORTABLE CHEST CLINICAL INFORMATION: Postop VATS. Chest tube to waterseal COMPARISON: Chest x-ray 11/04/2016 TECHNIQUE: Portable AP view of the chest was obtained. 6:08 AM FINDINGS: Right sided chest tube with catheter tip unchanged position at the apex of lung. Residual small apical pneumothorax remains unchanged since chest x-ray 11/04/2016. Surgical suture line at the right lung pleural line. Lungs are clear. No pulmonary vascular congestion. No pleural effusion. Heart size is normal. Cardiac and mediastinal contours are normal. IMPRESSION: Right-sided chest tube unchanged position. Stable small right apical pneumothorax unchanged since chest x-ray 11/04/2016.
--- NOTE | 2016-11-05 07:01 | NUR ---
PT SLEPT MOST OF NIGHT. PAIN WELL TOLERATED WITH TORADOL. CHEST TUBE DRAINING SCANT AMT OF SEROSAGINIOUS DRAINAGE. NO SOB OR RESP DISTRESS NOTED THOUGHOUT SHIFT. OOB TO COMMODE INDEPENTENTLY-GAIT STEADY. NO OTHER CHANGE IN PT'S ASSESSMENTS THOUGHOUT SHIFT
[2016-11-05 08:00] VITALS: BP 110/70
--- NOTE | 2016-11-05 08:59 | NUR ---
DR NETTLES PLACED CHEST TUBE TO LCWS. REVIEWED POC WITH PATIENT BY DR NETTLES. PATIENT IN BED, NO COMPLAINTS. CALL GREER IN REACH.
[2016-11-05 12:00] VITALS: BP 110/68
--- NOTE | 2016-11-05 13:08 | PN- Thoracic Surgery ---
Subjective Subjective: Patient without complaints of chest pain and shortness of breath. Denies nausea and vomitting. Is feeling concerned about taking care of her children and is anticipating discharge. Objective Vital Signs and I&Os Vital Signs Date Time Temp Pulse Resp B/P Pulse O2 O2 Flow FiO2 Ox Delivery Rate 11/05 1200 Room Air 11/05 1200 98.1 100 20 110/68 100 Room Air 11/05 0800 Room Air 11/05 0800 98.9 86 20 110/70 100 Room Air 11/05 0400 100 Room Air Room Air 11/05 0035 99 Room Air 11/05 0000 100 Room Air Room Air 11/05 0000 97.6 86 20 120/72 100 Room Air Room Air 11/04 2000 100 Room Air Room Air 11/04 1933 97 Room Air 11/04 1600 98 Room Air Room Air 11/04 1600 97.6 87 20 110/78 98 Room Air Room Air Intake & Output 11/05 1600 11/05 0800 11/05 0000 11/04 1600 11/04 0800 11/04 0000 Intake Total 120 420 600 380 920 Output Total 810 788 8744 585 575 Balance -230 -500 -600 -205 345 Intake, IV 80 80 Intake, Oral 120 420 600 300 840 Number 0 0 Bowel Movements Output, Chest 20 35 25 Tube Drainage Output, Urine 303 728 4591 550 550 Patient 122 lb Weight Physical Exam: General: NAD, comfortable, A&Ox3 Chest: Slightly diminished BS at right apex, otherwise CTAB. Heart S1S2 normal. Right chest tube in place to low wall suction. Small airleak noted with cough. Abdomen: soft, nontender, nondistended. Ext: No calve swelling/TTP, neurovascularly intact bilateral lower extremities Assessment/Plan Assessment/Plan 25yo F POD#3 s/p right VATS with bleb resection. AVSS, patient doing well. No obvious air leak. - Pain control -CT back to low wall suction, will water seal in 4-5 hours - f/u a.m. CXR -consider d/c chest tube tomorrow if ptx stable - OOB to chair - continue regular diet - I/O's - Will d/w attending Core Measures/Miscellaneous Venous Thromboembolism VTE Risk Factors: Surgery VTE Contraindications: No Contraindications VTE Diagnosis: No VTE Type: NONE VTE Confirmed by (Test): NONE Beta Susy Is Beta Susy a Home Med? No Antibiotics Is Patient on Antibiotics? No (post op 24 hours)
[2016-11-05 16:00] VITALS: BP 112/64
--- NOTE | 2016-11-05 16:35 | NUR ---
ASSUMED CARE OF PATIENT AT 1500, PT ALERT AND OREINTEDX3, ON RA, NO ACUTE COMPLAINTS, LCTA, DENIES SOB, DENIES CP, DSG TO R CHEST IS C/D/I, CHEST TUBE TO LOW WALL SUCTION, NO AIR LEAK, WILL CONT TO MONITOR.
[2016-11-06] VITALS: BP 110/72
--- NOTE | 2016-11-06 01:47 | NUR ---
REC'D PT IN BED 2300. A/O X3. R SIDED\/LATERAL CT TO LWS W/SEROSNAG D/C. C/O COLD FEELING PAIN TO HER R SIDED CT AREA 02/22. MEDICATED W/PERCOCET 2TABS & AFTER THE TABS NOT EFFECTIVE TORADOL IV GIVEN SEE EMAR FOR TIMES. 0145 PT VOMITED YELLOWISH UNDIGESTED LIQUID FOOD APPROX 200CC. MEDICATED W/ZOFRAN IV & INFORM PT TO DRINK SOME TEGAN NARGIS. FAMILY AT BEDSIDE. ST ON THE MONITOR HR IN 100-110'S. ON RA POX >98% LS DIMINISHED THROUGHOUT. VOIDS INDEPENDENTLY TO THE BSC. CONT TO MONITOR.
--- NOTE | 2016-11-06 05:47 | PN- Thoracic Surgery ---
Subjective Subjective: The patient was seen this morning postoperatively day #4. She has no complaints at the current time and reports that her pain is under adequate control. She thinks that the Percocet may be making her slightly nauseous. She denies any true chest pain or difficulty breathing. Objective Vital Signs and I&Os Vital Signs Date Time Temp Pulse Resp B/P Pulse O2 O2 Flow FiO2 Ox Delivery Rate 11/06 0357 100 Room Air 11/06 0000 99 Room Air 11/06 0000 98.7 87 19 110/72 99 Room Air 11/05 2000 Room Air 11/05 1910 99 Room Air Room Air 11/05 1600 Room Air 11/05 1600 98.3 108 20 112/64 99 Room Air 11/05 1200 Room Air 11/05 1200 98.1 100 20 110/68 100 Room Air 11/05 0945 95 Room Air Room Air 11/05 0800 Room Air 11/05 0800 98.9 86 20 110/70 100 Room Air Intake & Output 11/06 0800 11/06 0000 11/05 1600 11/05 0800 11/05 0000 11/04 1600 Intake Total 820 600 120 420 600 Output Total 460 500 290 926 7984 Balance 360 100 -230 -500 -600 Intake, Oral 820 600 120 420 600 Number 0 0 Bowel Movements Output, Chest 10 0 20 Tube Drainage Output, Urine 450 500 543 099 5724 Patient 122 lb Weight Physical Exam: Gen.: Alert and in no obvious distress Skin: Warm and dry Chest: Equal expansion, surgical incision is dry without signs of infection. There is a chest tube 1 connected to a Pleur-evac and wall suction without signs of and obvious air leak. Pulmonary: Bilateral breath sounds are equal and slightly decreased at bases Extremities: Bilateral lower extremities are warm without calf tenderness or significant edema. Assessment/Plan Assessment/Plan Assessment: 25-year-old female status post right apical blebectomy and pleurodesis secondary to recurrent spontaneous pneumothorax postoperative day # 4. The patient is making slow progression and it appears that her air leak has resolved. Plan: Follow-up morning chest x-ray if lung is up consider putting to waterseal or possibly clamping the chest tube. Out of bed Total respiratory care per protocol GI and DVT prophylaxis Change Percocet to Vicodin when necessary Bowel regiment Core Measures/Miscellaneous Venous Thromboembolism VTE Risk Factors: Surgery VTE Contraindications: No Contraindications VTE Diagnosis: No VTE Type: NONE VTE Confirmed by (Test): NONE Beta Susy Is Beta Susy a Home Med? No Antibiotics Is Patient on Antibiotics? No
--- NOTE | 2016-11-06 07:10 | RADIOLOGY REPORT ---
EXAMINATION: XR PORTABLE CHEST CLINICAL INFORMATION: Chest tube to waterseal overnight. COMPARISON: Chest x-ray 11/05/2016, 6:08 AM TECHNIQUE: Portable AP view of the chest was obtained. 6:44 AM FINDINGS: No change position of the right-sided chest tube at the right lung apex. No residual pneumothorax now present. Surgical suture line at the right lung apex. Lungs are clear. No pleural effusion. IMPRESSION: No residual pneumothorax.
[2016-11-06 08:00] VITALS: BP 110/78
--- NOTE | 2016-11-06 09:06 | NUR ---
CHEST TUBE TAKEN OFF WALL SUCTION, TO WATER SEAL BY DR NETTLES. NOTIFIED PATIENT IF SOB OR INCREASE PAIN TO CALL. WILL CONTINUE TO MONITOR.
--- NOTE | 2016-11-06 10:56 | NUR ---
Gave a patient saltines prior to medicating with oral Vicodin. Patient vomitted 50 ml emesis. Medicated with 4mg IV Zofran per PRN EMAR. Notified Tito surgical PA. Last BM reported 11/03/16. Patient reports has been passing flatus. Appetite fair. Abdomen distended but soft. Patient received Colace and Miralax this morning. Per PA will order PRN enema and dulcolax. Will continue to monitor.
--- NOTE | 2016-11-06 11:39 | RADIOLOGY REPORT ---
EXAMINATION: XR PORTABLE CHEST CLINICAL INFORMATION: 25-year-old female with right chest tube placed on waterseal from suction. Evaluate for pneumothorax. COMPARISON: November 06, 2016, 6:44 AM. TECHNIQUE: Portable AP view of the chest was obtained. FINDINGS: Right-sided chest tube remains in place with tip at the right lung apex. Surgical suture line again seen at the right lung apex. Subtle development of a small right apical pneumothorax. Lungs are grossly clear. Cardiomediastinal silhouette is within normal limits. No pleural effusion. No acute osseous abnormality. IMPRESSION: Interval development of a small right apical pneumothorax. This critical result was discussed with BOWEN Hand at 11:35 AM on 11/06/2016 and it was ascertained that the content and urgency of the report was understood at the time of direct communication.
[2016-11-06 12:00] VITALS: BP 110/70
--- NOTE | 2016-11-06 13:44 | RADIOLOGY REPORT ---
EXAMINATION: CHEST 1 VIEW CLINICAL INFORMATION: Follow-up pneumothorax. COMPARISON: Same day chest radiograph obtained at 1058 hours. TECHNIQUE: An AP view of the chest was obtained at 1305 hours. FINDINGS: The cardiac silhouette is not enlarged. The mediastinal and hilar contours are unremarkable. A right chest tube is in unchanged position. There is a small residual pneumothorax identified. This is not significantly changed from prior exam. Surgical chain sutures overlie the right apex. There are no consolidations. The osseous structures are unremarkable. IMPRESSION: No significant change in small residual right apical pneumothorax. Right chest tube in unchanged position.
--- NOTE | 2016-11-06 14:00 | NUR ---
CHEST TUBE REMOVED BY SAGAR WISEMAN. VASELINE GAUZE/DSD PRESSURE DRESSING APPLIED. OXYGEN SATURATION MAINTAINED 97% ON ROOM AIR. PATIENT LAYING IN BED WITH NO COMPLAINTS OF SOB. CALL GREER IN REACH. WILL CONTINUE TO MONITOR.
--- NOTE | 2016-11-06 14:31 | Event Note ---
Event Note Event Note: right chest tube removed occlusive drsg drsg with vasoline gauze applied patient tolerated procedure will d/w attending
[2016-11-06] MEDS ORDERED: DOCUSATE SODIU100 M3 PO (15:32)
--- NOTE | 2016-11-18 15:09 | Surgical Discharge Summary ---
Visit Information Visit Dates Admission Date: 11/01/16 Discharge Date: 11/06/16 History of Present Illness Chief Complaint: Patient is a 26-year-old woman admitted with a recurrent spontaneous pneumothorax. She was stabilized and plans for the operating room for surgical bleb resection and pleurodesis. Medical History Blood Transfusion Hx: No Neurological: NONE EENT: NONE Cardiovascular: NONE Respiratory: PNEUMOTHORAX Gastrointestinal: NONE Hepatic: NONE Renal: NONE Musculoskeletal: NONE Psychiatric: NONE Endocrine: NONE History of MRSA: No History of VRE: No History of CDIFF: No Isolation History: Standard Surgical History Pertinent Surgical History: non-contributory Family History Relations & Conditions If Any: Relation not specified for: *No pertinent family history Psychosocial History Where Do You Live? Home Who Do You Live With? Significant Other Services at Home: None What is Your Primary Language? Syriac ETOH Use: denies use Review of Systems: Pleuritic-type chest pain and mild dyspnea. Hospital Course Course Attending Physician: YOON NAJERA,KRISTEN Howell JR Primary Care Physician: TERESE NAJERA,[facility] Course: She was taken to the operating room and underwent thoracoscopic wedge resection and pleurodesis. There was a single apical blebs seen at the right upper lobe lung apex. She was admitted to the intensive care unit and once her air leak disappeared and her lung was reexpanded her chest tube was removed. Allergies: Coded Allergies: NO KNOWN ALLERGIES (08/23/15) Significant Procedures: Thoracoscopic apical bleb resection and pleurodesis Disposition Summary Disposition Principal Diagnosis: Spontaneous recurrent right pneumothorax Additional Diagnosis: Apical bleb disease Discharge Disposition: home or self care Discharge Instructions General Discharge Information Code Status: Full Code Patient's Diet: Usual Patient's Activity: As tolerated Follow-Up Instructions/Appts: 2 weeks in the office with a chest x-ray Medications at Discharge Discharge Medications: Start taking the following new medications: Docusate Sodium (Docusate Sodium) 100 MG CAPSULE 100 Milligram ORAL TWICE DAILY as needed for constipation Days = 14 No Refills Instructions: stool softener available over the counter as needed Comments: Last Taken: 11/06/16 Time: 9:30 AM Oxycodone HCl/Acetaminophen (Percocet 5-325 MG Tablet) 5 MG-325 MG TABLET 1-2 Tablet ORAL EVERY 4-6 HOURS NEEDED as needed for pain control Qty = 36 No Refills Comments: Last Taken: 11/06/16 Time: 10:45 AM VICODIN 2 TABS GIVEN AT THIS TIME, PERCOCET PRESCRIBED FOR HOME
== END 2016-11-06 16:00 | disposition home health service (06) | DRG 120 ==
LOC: ENRESERVDT → ENRESERVTM → ERH 18:21 → ERHI 19:28 → CRI 19:28 → 2NA 21:20 → CRI 11-02 10:56
PROVIDERS: Nurse Practitioner; Physician Assistant Medical; Physician Assistant Surgical; ADMIT Thoracic Surgery (Cardiothoracic Vascular Surgery)
PROC: 0W9940Z Drainage of Right Pleural Cavity with Drainage Device, Percutaneous Endoscopic Approach (ICD-10-PCS; principal; 2016-11-02)
PROC: 0BBC4ZZ Excision of Right Upper Lung Lobe, Percutaneous Endoscopic Approach (ICD-10-PCS; principal; 2016-11-02)
PROC: 0B5N4ZZ Destruction of Right Pleura, Percutaneous Endoscopic Approach (ICD-10-PCS; principal; 2016-11-02)
DX: J93.83 Other pneumothorax (principal); J43.9 Emphysema, unspecified
CPT/HCPCS: 2NAP; CCU; 36415; 82436; 88307; 93005; 93010; 96374; C9290; J0131; J0690; J1100; J1170; J1644; J1885; J2405; J2765; J7042; S5012